=== PATIENT | female | born 1990 | race Caucasian/White ===

== ENCOUNTER → 2019-03-02 | Day surgery (SDC) | payer OTHER ==
--- NOTE | 2019-03-01 13:40 | Pre Op History & Physical ---
CHIEF COMPLAINT: Right thyroid nodule. HISTORY OF PRESENT ILLNESS: This 28-year-old female initially was seen in the ER around October of this year because of globus sensation. The patient denies any dysphagia, odynophagia, or shortness of breath. She has no choking. She does complain of hoarseness. The patient is a nonsmoker and a social drinker. A CT scan of the neck in the ER showed the patient has a lesion in the right isthmus and thyroid area. The patient has no family history of thyroid problems. She has no radiation to the head and neck area. Ultrasound of the thyroid that was done showed the patient has 1.9 cm nodule in the right lobe of the thyroid and isthmus. The criterion suitable for biopsy. After discussion of the treatment options with the patient, the patient has declined ultrasound-guided needle biopsy and elected for procedure. REVIEW OF SYSTEMS: System review showed no recent cardiovascular, respiratory, or GI problem. PAST MEDICAL HISTORY: The patient has no significant medical problem. PAST SURGICAL HISTORY: The patient has previous tonsillectomy and surgery to her ankle. SOCIAL HISTORY: She is a nonsmoker and a social drinker. ALLERGIES: SHE HAS NO KNOWN ALLERGY TO MEDICATION. MEDICATIONS: She is on: 1. Buspirone. 2. Bupropion. 3. Saphris. FAMILY HISTORY: Noncontributory. PHYSICAL EXAMINATION: VITAL SIGNS: On examination, the patient's vital signs were within normal limits. HEENT: Ear exam showed normal tympanic membrane bilaterally. Nasal exam showed hypertrophy of the inferior turbinates. Oropharynx and oral cavity showed no tonsils with Mallampati level 2. Nasal endoscopy showed the patient has mobile vocal folds bilaterally with no lesion in the hypopharynx. NECK: Showed no lymph node or thyroid palpable. CHEST: Showed good air entry bilaterally. CARDIOVASCULAR: Showed S1 and S2. No murmur noted. ASSESSMENT/PLAN: Ms. Vargas has right thyroid isthmus nodule. The suggested treatment is right thyroidectomy, possible total thyroidectomy, and other necessary procedure. The complication of procedure includes, but not limited to bleeding, infection, hypothyroidism, hyperthyroidism, hypocalcemia, hypercalcemia, voice change, recurrent laryngeal nerve injury, trouble swallowing, wound breakdown, poor cosmetic result, perforation of the esophagus, pneumomediastinum, persistent recurrence of the problem. Alternatives will be continue observation, needle aspiration of the lesion, thyroid suppression therapy. The patient and her mother have elected to undergo surgical procedure. MD SORAIDA Phillips/GRICEL /[id number]
[~2019-03-02] MED LIST: ACETAMINOPHEN 1000 MG/100 ML IV ONE; ALLERGY OTC PO; BUPROPION XL150 MG PO; BUSPIRONE HCL15 MG PO; DEXAMETHASONE SOD PHOS INJ 4 MG/ML VIAL ONE; FENTANYL CITRATE/PF 100MCG/2 ML INJ ONE; FLONASE SPRAY; GLYCOPYRROLATE INJ 1MG/ 5 ML SYR ONE; LIDOCAINE 1% W/EPINEPHRINE 20 ML VIAL ONE; LIDOCAINE HCL 1% LOCAL INJ 20 ML VIAL ONE; LIDOCAINE HCL 2% LOCAL INJ 5 ML SDV VIAL INJ ONE; MIDAZOLAM HCL 2 MG/2 ML VIAL ONE; NEOSTIGMINE 5 MG/5ML SYR ONE; ONDANSETRON HCL INJ 2MG/ML 2ML 2 MG/ML VIAL ONE; PROPOFOL IV EMULSION 10 MG/ML 20 ML VIAL ONE; ROCURONIUM BROMIDE 10 MG/ML 5ML VIAL ONE; SAPHRIS10 MG PO; SEVOFLURANE INHAL SOLN 250 ML PEN BTL ONE
--- OUTSIDE RECORDS SUMMARY | 2019-03-02 07:55 | XMS REPORT ---
Author Author Admin, Pyrites Organization Unknown Address Unknown Phone Unavailable PROBLEMS Condition Status Date Provider Notes Skin lesion active Swapnil Fan Hypercholesterolemia active Swapnil Fan Thyroid disorder active Swapnil Fan Allergic rhinitis active Obie Ann Iliotibial band syndrome active Obie Ann GENERALIZED ANXIETY DISORDER active Jessica Jacques BMI 45.0-49.9 active Obie Ann Medication, termite helper use active Jessica Jacques DEPRESSIVE DISORDER, MAJOR, RECURRENT EPISODE, MODERATE active Jessica Jacques Meralgia paresthetica, bilateral lower limbs active Obie Ann Lower back pain active Obie Ann Adjustment disorder with mixed anxiety and depressed mood active Zulay Pedersen DEPRESSIVE DISORDER NOS active Zulay Pedersen DIAGNOSIS DEFERRED, AXIS II active Ignacia Ogunmokun R/OBIPOLAR II DISORDER active Ignacia Ogunmokun R/ODEPRESSIVE DISORDER NOS active Ignacia Ogunmokun PELVIC PAIN completed - Obie Ann ADHD active Gerald Bainbridge ACNE VULGARIS completed - Obie Ann FAMILY PLANNING completed - Obie Ann UTI completed - Obie Ann DEPRESSION, MAJOR, MILD active Gerald Bainbridge OBESITY active Gerald Pierce ACCIDENTAL POISN AGTS PRIMARILY AFFECT CV SYSTEM active Gerald Pierce ENCOUNTERS Date Type Provider Location Encounter Diagnosis - Ambulatory Encounter [facility] - Ambulatory Encounter Swapnil Fan [facility] UNK - [facility] - [facility] Swapnil Patel [facility] Thyroid disorderHypercholesterolemiaSkin lesion - Ambulatory Encounter Jessica Jacques [facility] UNK - Ambulatory Encounter Jessica Leggett [facility] UNK - Ambulatory Encounter [facility] - [facility] UNK - Ambulatory Encounter Jessica Jacques [facility] UNK - Ambulatory Encounter Jessica Diop [facility] UNK - [facility] - [facility] - Ambulatory Encounter Breanna Mann [facility] UNK - [facility] - [facility]ulatory Encounter Obie Ann Obie Ann [facility] UNK - Ambulatory Encounter Swapnil Saleem Obie Ann Obie Ann Still [facility] UNK - Ambulatory Encounter Breanna Perstanleyu De Lou[place] [facility] UNK - Ambulatory Encounter Jessica Jacques [facility] UNK - Ambulatory Encounter Jessica Guillen [facility] UNK - Ambulatory Encounter Catia Hansen [facility] UNK - Ambulatory Encounter Breanna Perarnau [place] [facility] UNK - Ambulatory Encounter Breanna Permichaelnau [place] [facility] UNK - Ambulatory Encounter Jessica Jacques [facility] UNK - Ambulatory Encounter Jessica Guillen [facility] UNK - Ambulatory Encounter Breanna Permichaelnau [place] [facility] UNK - Ambulatory Encounter Breanna Permichaelnau [place] [facility] UNK - Ambulatory Encounter Jessica Jacques [facility] UNK - Ambulatory Encounter Obie Ann Obie Ann Miller [facility] UNK - Ambulatory Encounter Jessica Jacques [facility] UNK - Ambulatory Encounter Jessica Jacques [facility] UNK - Ambulatory Encounter Jessica Clarke [facility] UNK - Ambulatory Encounter Jessica Jacques [facility] UNK - Ambulatory Encounter Jessica Jacques [facility] UNK - Ambulatory Encounter Jessica Jacques [facility] Ambulatory Encounter Fax Status [facility] UNK - Ambulatory Encounter Fax Status [facility] UNK - Ambulatory Encounter Fax Status [facility] UNK - Ambulatory Encounter Obie Ann Obie Ann [facility] UNK - Ambulatory Encounter Obie Ann Obie Ann [facility] UNK - Ambulatory Encounter Obie Ann Obie Ann [facility] UNK - Ambulatory Encounter Catia Hlala Obie Ann Obie Ann Rio Hernandez [facility] Iliotibial band syndromeAllergic rhinitis - Ambulatory Encounter [facility] - Ambulatory Encounter [facility] - Ambulatory Encounter Breanna Mead [facility] UNK - Ambulatory Encounter Jessica Jacques [facility] UNK [facility] Ambulatory Encounter Jessica Jacques [facility] UNK - Ambulatory Encounter Jessica Rodrigues [facility] UNK - Ambulatory Encounter Jessica Jacques [facility] UNK - [facility] Encounter Obie Ann Obie Ann [facility] UNK - Ambulatory Encounter Obie Ann Obie Ann [facility] UNK - Ambulatory Encounter Jessica Guillen [facility] UNK - Ambulatory Encounter Swapnil Fan Obie Ann Obie Ann Moira Benjamin [facility] BMI 45.0-49.9 - Ambulatory Encounter Jessica Jacquse [facility] UNK - Ambulatory Encounter Jessica Simmons [facility] DEPRESSIVE DISORDER, MAJOR, RECURRENT EPISODE, MODERATEMedication, fci useGENERALIZED ANXIETY DISORDER - Ambulatory Encounter Obie Ann Obie Ann [facility] UNK - Ambulatory Encounter Obie Ann Obie Ann [facility] UNK - Ambulatory Encounter Obie Ann Obie Ann [facility] UNK - Ambulatory Encounter Elodia Saleem Obie Ann Obie Ann [facility] UTIFAMILY PLANNINGACNE VULGARISPELVIC PAINLower back painMeralgia paresthetica, bilateral lower limbs - Ambulatory Encounter Leatha Mahogany [facility] Contact Center UNK - Ambulatory Encounter Dariela Wadsworth [facility] UNK - Ambulatory Encounter Vazquez Vallecillo [facility] UNK - Ambulatory Encounter Vazquez Gallardo [facility] UNK - Ambulatory Encounter Vazquez Gallardo [facility] UNK - Ambulatory Encounter Zulay Pedersen [facility] UNK - Ambulatory Encounter Zulay Pedersen [facility] UNK - Ambulatory Encounter Zulay Biswas Francinetheodore [facility] Adjustment disorder with mixed anxiety and depressed mood - Ambulatory Encounter Zluay Pedersen [facility] UNK - Ambulatory Encounter Zulay Biswas Francinetheodore [facility] DEPRESSIVE DISORDER NOS - Ambulatory Encounter Zulay Pedersen [facility] UNK - Ambulatory Encounter Ignacia Ogunmokun Ignacia Ogunmokun Scarlett Gallardo [facility] R/ODEPRESSIVE DISORDER NOSR/OBIPOLAR II DISORDERDIAGNOSIS DEFERRED, AXIS II - Ambulatory Encounter Moriah Sandy [facility] Contact Center UNK - Ambulatory Encounter Edgardo Casey Benjamin [facility] UNK - Ambulatory Encounter Edgardo Casey Benjamin [facility] UNK - Ambulatory Encounter Edgardo Casey Benjamin [facility] UNK - Ambulatory Encounter Letha Vang [facility] UNK - Ambulatory Encounter Gerald [facility] UNK - Ambulatory Encounter Letha Vang [facility] UNK - Ambulatory En[facility] - Ambulatory Encounter Shani Harman [facility] UNK - Ambulatory Encounter Gerald Pazssica Vang [facility] PELVIC PAIN - Ambulatory En[facility] Gerald Duarte [facility] UNK - Ambulatory En[facility] - Ambulatory Encounter Sikhism Preload [facility] UNK - Ambulatory Encounter Sikhism Preload [facility] UNK - Ambulatory Encounter Sikhism Preload [facility] UNK - Ambulatory Encounter [facility]ikhism Preload [facility] UNK - Ambulatory Encounter Sikhism Preload [facility] UNK - Ambulatory Encounter Sikhism Preload [facility] UNK - Ambulatory Encounter Sikhism Preload [facility] UNK - Ambulatory Encounter Sikhism Preload [facility] UNK - Ambulatory Encounter Sikhism Preload [facility] UNK - Ambulatory Encounter [facility]ikh[facility] - Ambulatory Encounter [facility]ikhism [facility] - Ambulatory Encounter Sikhism Preload [facility] UNK - Ambulatory Encounter Sikhism Preload [facility] UNK - Ambulatory Encounter Sikhism Preload [facility] UNK - Ambulatory Encounter Sikhism Preload [facility] UNK - Ambulatory Encounter Sikhism Preload [facility] UNK - Ambulatory Encounter Sikhism Preload [facility] UNK - Ambulatory Encounter Sikhism Preload [facility] UNK - Ambulatory Encounter Sikhism Preload [facility] UNK - Ambulatory Encounter Sikhism Preload [facility] UNK - Ambulatory Encounter Sikhism Preload [facility] UNK - Ambulatory Encounter Sikhism Preload [facility] UNK - Ambulatory Encounter Sikhism Preload [facility] UNK - Ambulatory Encounter Sikhism Preload [facility] UNK - Ambulatory Encounter Sikhism Preload [facility] UNK - Ambulatory Encounter Sikhism Preload [facility] UNK - Ambulatory Encounter Sikhism Preload [facility] UNK - Ambulatory Encounter Sikhism Preload [facility] UNK - Ambulatory Encounter Sikhism Preload [facility] UNK - Ambulatory Encounter Kassie Navas [facility] UNK - Ambulatory Encounter Kassie Navas [facility] UNK - Ambulatory Encounter Gerald Bakermeli [facility] ACCIDENTAL POISN AGTS PRIMARILY AFFECT CV SYSTEMOBESITYDEPRESSION, MAJOR, MILDUTIFAMILY PLANNINGACNE VULGARIS - Ambulatory Encounter Sikhism Preload [facility] UNK - Ambulatory Encounter Sikhism Preload [facility] UN[facility] - Ambulatory Encounter Sikhism Preload [facility] UNK - Ambulatory Encounter Sikhism Preload [facility] UNK - Ambulatory Encounter Sikhism Preload [facility] UNK - Ambulatory Encounter Sikhism Preload [facility] UN[facility] - Ambulatory Encounter Sikhism Preload [facility] UN[facility] - Ambulatory Encounter Sikhism Preload [facility] UN[facility] - Ambulatory Encounter Sikhism [facility] - Ambulatory Encounter Sikhism Preload [facility] UNK - Ambulatory Encounter Sikhism Preload [facility] UN[facility] - Ambulatory Encounter Sikhism Preload [facility] UN[facility] - Ambulatory Encounter Sikhism Preload [facility] UNK - Ambulatory Encounter Sikhism Preload [facility] UNK - Ambulatory Encounter Sikhism Preload [facility] UNK - Ambulatory Encounter Gerald Mims [facility] UNK VITAL SIGNS No Information Available Allergies No Known Allergy Information REASON FOR REFERRAL Start Date - End Date Service - Other Referral - External RESULTS Date Observation Value Provider Reference Range Interpretation Location thyroid stimulating hormone, serum 1.950 u[iU]/mL [facility] 0.450-4.500 " LDL cholesterol, serum 187 mg/dL [facility] 0-99 High " very low density lipoproteins 16 mg/dL [facility] 5-40 " HDL cholesterol, serum 44 mg/dL [facility] >39 " triglyceride, serum, fasting 82 mg/dL [facility] 0-149 " cholesterol, serum 247 mg/dL [facility] 100-199 High " alanine aminotransferase (SGPT), serum 31 1/L [facility] 0-32 " aspartate aminotransferase (SGOT), serum 22 1/L [facility] 0-40 " alkaline phosphatase, serum 63 1/L [facility] 39-117 " bilirubin, serum, total 0.2 mg/dL [facility] 0.0-1.2 " albumin/globulin ratio, serum 1.8 [facility] 1.2-2.2 " globulin, serum 2.5 [facility] 1.5-4.5 " albumin, serum 4.6 g/dL [facility] 3.5-5.5 " protein, total, serum 7.1 g/dL [facility] 6.0-8.5 " calcium, serum 9.7 mg/dL [facility] 8.7-10.2 " carbon dioxide, venous blood 24 mmol/L [facility] 20-29 " chloride, serum 102 mmol/L [facility] 96-106 " potassium, serum 4.5 mmol/L [facility] 3.5-5.2 " sodium, serum 141 mmol/L [facility] 134-144 " urea nitrogen/creatinine ratio, serum 9 [facility] 9-23 " eGFR if 91 mL/min/((173/100).m2) [facility] >59 " Estimated Glomerular Filtration Rate (calc) 79 mL/min/((173/100).m2) [facility] >59 " creatinine, serum 0.97 mg/dL [facility] 0.57-1.00 " urea nitrogen, blood 9 mg/dL [facility] 6-20 " blood glucose, random 88 mg/dL [facility] 65-99 " immature granulocytes, percentage of total cells, blood 0 % [facility] Not Estab. " basophil count, absolute 0.0 x10E3/uL [facility] 0.0-0.2 " Eosinophil Absolute Count 0.5 X10E3/UL [facility] 0.0-0.4 High " monocyte count, blood, automated 0.6 X10E3/UL [facility] 0.1-0.9 " lymphocyte count, blood, automated 2.6 X10E3/UL [facility] 0.7-3.1 " Absolute Neutrophils 3.8 X10E3/UL [facility] 1.4-7.0 " basophils as percent of blood leukocytes 0 % [facility] Not Estab. " eosinophils as percent of blood leukocytes 6 % [facility] Not Estab. " monocytes as percent of blood leukocytes 8 % [facility] Not Estab. " lymphocytes as percent of blood leukocytes 34 % [facility] Not Estab. " neutrophils as percent of blood leukocytes 52 % [facility] Not Estab. " platelet count 292 X10E3/UL [facility] 150-450 " red blood cell distribution width 12.8 % [facility] 12.3-15.4 " mean corpuscular hemoglobin concentration, RBC 32.8 G/DL [facility] 31.5-35.7 " mean corpuscular hemoglobin, RBC 29.6 pg [facility] 26.6-33.0 " mean corpuscular volume, RBC 90 fL [facility] 79-97 " hematocrit, blood 45.7 % [facility] 34.0-46.6 " hemoglobin, blood 15.0 g/dL [facility] 11.1-15.9 " erythrocyte (RBC) count 5.07 X10E6/UL [facility] 3.77-5.28 " leukocyte count, blood 7.5 X10E3/UL [facility] 3.4-10.8 triiodothyronine (T3), serum 128 ng/dL [facility] 71-180 " thyroxine, serum, total 7.4 ug/dL [facility] 4.5-12.0 " thyroid stimulating hormone, serum 1.320 u[iU]/mL [facility] 0.450-4.500 " LDL cholesterol, serum 150 mg/dL [facility] 0-99 High " very low density lipoproteins 33 mg/dL [facility] 5-40 " HDL cholesterol, serum 38 mg/dL [facility] >39 Low " triglyceride, serum, fasting 166 mg/dL [facility] 0-149 High " cholesterol, serum 221 mg/dL [facility] 100-199 High " alanine aminotransferase (SGPT), serum 55 1/L [facility] 0-32 High " aspartate aminotransferase (SGOT), serum 32 1/L [facility] 0-40 " alkaline phosphatase, serum 62 1/L [facility] 39-117 " bilirubin, serum, total 0.2 mg/dL [facility] 0.0-1.2 " albumin/globulin ratio, serum 2.1 [facility] 1.2-2.2 " globulin, serum 2.1 [facility] 1.5-4.5 " albumin, serum 4.4 g/dL [facility] 3.5-5.5 " protein, total, serum 6.5 g/dL [facility] 6.0-8.5 " calcium, serum 9.6 mg/dL [facility] 8.7-10.2 " carbon dioxide, venous blood 25 mmol/L [facility] 20-29 " chloride, serum 103 mmol/L [facility] 96-106 " potassium, serum 4.3 mmol/L [facility] 3.5-5.2 " sodium, serum 142 mmol/L [facility] 134-144 " urea nitrogen/creatinine ratio, serum 12 [facility] 9-23 " eGFR if 109 mL/min/((173/100).m2) [facility] >59 " Estimated Glomerular Filtration Rate (calc) 95 mL/min/((173/100).m2) [facility] >59 " creatinine, serum 0.84 mg/dL [facility] 0.57-1.00 " urea nitrogen, blood 10 mg/dL [facility] 6-20 " blood glucose, random 89 mg/dL [facility] 65-99 " immature granulocytes, percentage of total cells, blood 0 % [facility] Not Estab. " basophil count, absolute 0.0 x10E3/uL [facility] 0.0-0.2 " Eosinophil Absolute Count 0.5 X10E3/UL [facility] 0.0-0.4 High " monocyte count, blood, automated 0.6 X10E3/UL [facility] 0.1-0.9 " lymphocyte count, blood, automated 2.5 X10E3/UL [facility] 0.7-3.1 " Absolute Neutrophils 3.7 X10E3/UL [facility] 1.4-7.0 " basophils as percent of blood leukocytes 0 % [facility] Not Estab. " eosinophils as percent of blood leukocytes 7 % [facility] Not Estab. " monocytes as percent of blood leukocytes 8 % [facility] Not Estab. " lymphocytes as percent of blood leukocytes 34 % [facility] Not Estab. " neutrophils as percent of blood leukocytes 51 % [facility] Not Estab. " platelet count 283 X10E3/UL [facility] 150-379 " red blood cell distribution width 13.5 % [facility] 12.3-15.4 " mean corpuscular hemoglobin concentration, RBC 34.0 G/DL [facility] 31.5-35.7 " mean corpuscular hemoglobin, RBC 29.8 pg [facility] 26.6-33.0 " mean corpuscular volume, RBC 88 fL [facility] 79-97 " hematocrit, blood 43.0 % [facility] 34.0-46.6 " hemoglobin, blood 14.6 g/dL [facility] 11.1-15.9 " erythrocyte (RBC) count 4.90 X10E6/UL [facility] 3.77-5.28 " leukocyte count, blood 7.3 X10E3/UL [facility] 3.4-10.8 beta HCG, urine, semiquantitative negative Carmela Benjamin glucose, urine, semiquantitative negative Rheakye Gray " bilirubin, urine negative Rhea Gray " ketones, urine, by test strip negative Rhea Gray " specific gravity, urine 1.025 Rhea Gray " blood in urine (hemoglobin) by dipstick negative Rhea Gray " pH, urine, semiquantitative 5.0 Rhea Gray " protein, urine, semiquantitative (dipstick) negative Rhea Gray " urobilinogen, urine, semiquantitative (dipstick) negative Rhea Gray " nitrite, urine, semiquantitative negative Rhea Gray " leukocyte esterase, urine, by dipstick 1+ Rhea Gray " appearance, urine clear Rhea Gray " urine color yellow Rhea Gray HISTORY OF IMMUNIZATIONS No Information Available HISTORY OF MEDICATION USE Medication Instructions Dates Provider Comments PHENTERMINE HCL 30 MG ORAL CAPSULE 1 by mouth every 2 hours after breakfast Swapnil Fan FLUTICASONE PROPIONATE 50 MCG/ACT SUSP SPRAY 2 SPRAYS INTO EACH NOSTRIL EVERY DAY Shikha Hansen [facility] WELLBUTRIN XL 150 MG ORAL TABLET EXTENDED RELEASE 24 HOUR Take 1 tablet By Mouth QAM Jessica Jacques FLONASE ALLERGY RELIEF 50 MCG/ACT NASAL SUSPENSION 2 sprays each nostril every day - Shikha Hansen [facility] BUSPIRONE HCL 15 MG ORAL TABLET Take 2 tablets By Mouth BID Jessica Jacques SAPHRIS 10 MG SUBLINGUAL TABLET SUBLINGUAL Dissolve 1 tablet By Mouth QHS Jessica Jacques GABAPENTIN 300 MG ORAL CAPSULE 1 by mouth three times a day as needed for pain - Swapnil Fan CYCLOBENZAPRINE HCL 10 MG ORAL TABLET take 1 tablet at nightime Obie Juarez NAPROXEN 500 MG ORAL TABLET 1 by mouth twice a day as needed for pain and inflammation Obie Juarez ELAVIL 25MG take 1 tab By Mouth Three Times a Day As Needed - Ignacia Ogunmokun Take for depression VALIUM 5 MG ORAL TABLET take 1 tab By Mouth Three Times a Day As Needed - Ignacia Ogunmokun Take for anxiety TRAZODONE HCL 100 MG ORAL TABLET take 2 tabs po at bedtime, may repeat X 1 tab as needed - Ignacia Ogunmokun Take for insomnia CYMBALTA 60 MG ORAL CAPSULE DELAYED RELEASE PARTICLES One daily - Obie Juarez ADDERALL XR 30 MG ORAL CAPSULE EXTENDED RELEASE 24 HOUR One daily - Obie Juarez BENZAMYCIN 5-3 % EXTERNAL GEL apply to face nightly at bedtime - Obie Juarez HYDROXYZINE HCL 50 MG ORAL TABLET Take 1 tablet By Mouth BID As Needed for anxiety - Swapnil Fan TRAZODONE HCL 150 MG ORAL TABLET 1 by mouth nightly at bedtime - Obie Juarez ABILIFY 2 MG ORAL TABLET One daily in morning - Obie Juarez SOCIAL HISTORY Date Observation Value Provider Exercise Program Referral Agnes Fan " Weight Management Counseling Provided Agnes Fan " Nutrition intervention Agnes Fan " drug use, illicit Never Rosalie Eng " alcohol use Currently Rosalie Eng " social history E&M . alone before in 2011, Not homeless. Born in [facility]. City: [place]. State: [place]. Pt have own apartment but currently live with mom Not employed. Highest education level: some college. attended cosmetology Gender of partner(s): male. Age of first sexual intercourse: 19. Holiness.no hobbies but would like to explore thought of developing Rosalie Eng " social history reviewed E&M reviewed today Rosalie Eng " assessment of health literacy ([facility] 2014 Standards, 3C10) Adequate Rosalie Eng " passive cigarette smoke exposure Yes Rosalie Eng " smoking status never smoker Rosalie Eng drug use, illicit Never Jessica Jacques " alcohol use Currently Jessica Jacques " smoking status never smoker Jessica Jacques " social history E&M . alone before in 2011, Not homeless. Born in [facility]. City: [place]. State: [place]. Pt have own apartment but currently live with mom Not employed. Highest education level: some college. attended cosmetology Gender of partner(s): male. Age of first sexual intercourse: 19. Holiness.no hobbies but would like to explore thought of developing Jessica Jacques " social history reviewed E&M reviewed today Jessica Jacques drug use, illicit Never Jessica Jacques " alcohol use Currently Jessica Jacques " smoking status never smoker Jessica Jacques " social history E&M . alone before in 2011, Not homeless. Born in [place]. City: [place]. State: [place]. Pt have own apartment but currently live with mom Not employed. Highest education level: some college. attended cosmetology Gender of partner(s): male. Age of first sexual intercourse: 19. Holiness.no hobbies but would like to explore thought of developing Jessica Jacques " social history reviewed E&M reviewed today Jessica Jacques drug use, illicit Never Laurita Saleem " alcohol use Currently Laurita Saleem " social history E&M . alone before in 2011, Not homeless. Born in [place] City: [place]. State: [place]. Pt have own apartment but currently live with mom Not employed. Highest education level: some college. attended cosmetology Gender of partner(s): male. Age of first sexual intercourse: 19. Holiness.no hobbies but would like to explore thought of developing Laurita Stiven " social history reviewed E&M reviewed today Laurita Saleem " sexual orientation Heterosexual Laurita Stiven " assessment of health literacy ([facility] 2014 Standards, 3C10) Adequate Laurita Saleem " passive cigarette smoke exposure Yes Laurita Saleem " smoking status never smoker Laurita Saleem " Exercise Program Referral T Laurita Saleem " Weight Management Counseling Provided T Laurita Saleem " Nutrition intervention T Laurita Saleem drug use, illicit Never Jesisca Jacques " alcohol use Currently Jessica Jacques " smoking status never smoker Jessica Jacques " social history E&M . alone before in 2011, Not homeless. Born in [facility]. City: [place]. State: [place]. Pt have own apartment but currently live with mom Not employed. Highest education level: some college. attended cosmetology Gender of partner(s): male. Age of first sexual intercourse: 19. Holiness.no hobbies but would like to explore thought of developing Jessica Jacques " social history reviewed E&M reviewed today Jessica Jacques drug use, illicit Never Jessica Jacques " alcohol use Currently Jessica Jacques " smoking status never smoker Jessica Jacques " social history E&M . alone before in 2011, Not homeless. Born in [place]. City: [place]. State: [place]. Pt have own apartment but currently live with mom Not employed. Highest education level: some college. attended cosmetology Gender of partner(s): male. Age of first sexual intercourse: 19. Holiness.no hobbies but would like to explore thought of developing Jessica Jacques " social history reviewed E&M reviewed today Jessica Jacques alcohol use Currently Jessicajim Jacques " smoking status never smoker Jessica Jacques " social history E&M . alone before in 2011, Not homeless. Born in [facility]. City: [place]. State: [place]. Pt have own apartment but currently live with mom Not employed. Highest education level: some college. attended cosmetology Gender of partner(s): male. Age of first sexual intercourse: 19. Holiness.no hobbies but would like to explore thought of developing Jessica Jacques " social history reviewed E&M reviewed today Jessica Jacques Exercise Program Referral T Obie Juarez " Weight Management Counseling Provided T Obie Juarez " Nutrition intervention T Obie Juarez " drug use, illicit Never Rosalie Eng " alcohol use Currently Rosalie Eng " social history E&M . alone before in 2011, Not homeless. Born in [facility]. City: [place]. State: [place]. Pt have own apartment but currently live with mom Not employed. Highest education level: some college. attended cosmetology Gender of partner(s): male. Age of first sexual intercourse: 19. Holiness.no hobbies but would like to explore thought of developing Rosalie Eng " social history reviewed E&M reviewed today Rosalie Eng " assessment of health literacy ([facility] 2014 Standards, 3C10) Adequate Rosalie Eng " passive cigarette smoke exposure No Rosalie Eng " smoking status never smoker Rosalie Eng family support at 21, at 22. No children, no siblings. No contact with father Breannatayla Pugadeni De Jessica " drug use, illicit Never Breanna Perarnau De Loukanis " alcohol use Currently Breanna Perarnau De Loukanis " smoking status never smoker Breanna Perarnau De Loukanis drug use, illicit Never Jessica Jacques " alcohol use Currently Jessica Jacques " smoking status never smoker Jessica Jacques " social history E&M . alone before in 2011, Not homeless. Born in [facility]. City: [place]. State: [place]. Pt have own apartment but currently live with mom Not employed. Highest education level: some college. attended cosmetology Gender of partner(s): male. Age of first sexual intercourse: 19. Holiness.no hobbies but would like to explore thought of developing Jessica Jacques " social history reviewed E&M reviewed today Jessica Jacques drug use, illicit Never Moira Benjamin " alcohol use Currently Moira Benjamin " social history E&M . alone before in 2011, Not homeless. Born in [facility]. City: [place]. State: [place]. Pt have own apartment but currently live with mom Not employed. Highest education level: some college. attended cosmetology Gender of partner(s): male. Age of first sexual intercourse: 19. Holiness.no hobbies but would like to explore thought of developing Moira Benjamin " social history reviewed E&M reviewed today Moira Benjamin " sexual orientation Heterosexual Moira Benjamin " passive cigarette smoke exposure No Moira Benjamin " smoking status never smoker Moira Benjamin " Exercise Program Referral Agnes Benjamin " Weight Management Counseling Provided Agnes Benjamin " Nutrition intervention Agnes Benjamin home/family situation, assessment Keeps own apartment, but close by to mom's Jessicajim Jacques " family support at 21, at 22. No children, no siblings. Jessica Jacques " drug use, illicit Never Jessica Jacques " alcohol use Currently Jessica Jacques " smoking status never smoker Jessica Jacques " social history E&M . Spouse/Partner/Significant Other: no. at 21, at 22. No children, no siblings. Not homeless. Born in [facility]. City: [place]. State: [place]. Keeps own apartment, but close by to mom's Not employed. Highest education level: some college. attended cosmetology; works at [employer]. Hx ADHD and dyslexia Sexual orientation: Heterosexual. Gender identity: Female. Gender of partner(s): male. Age of first sexual intercourse: 19. Holiness.no hobbies but would like to explore thought of developing. has cats- 2 at mom's, 2 at her house Jessica Jacques " social history reviewed E&M reviewed today Jessica Jacques " Exercise Program Referral T Laurita Saleem " drug use, illicit Never Laurita Saleem " alcohol use Currently Laurita Saleem " Weight Management Counseling Provided T Laurita Saleem " Nutrition intervention T Laurita Saleem " sexual orientation Heterosexual Laurita Saleem " is there any chance that you could be ? No Laurita Saleem " passive cigarette smoke exposure Yes Laurita Saleem " smoking status never smoker Lauriat Saleem social history reviewed E&M reviewed today Zulaybrittny Pedersen " social history E&M . alone before in 2011, Not homeless. Born in [facility]. City: [place]. State: [place]. Pt have own apartment but currently live with mom Not employed. Highest education level: some college. attended cosmetology Gender of partner(s): male. Age of first sexual intercourse: 19. Holiness.no hobbies but would like to explore thought of developing Zulay Almore " drug use, illicit Never Zulay Almore " alcohol use Never Zulay Almore " smoking status never smoker Zulay Almore " family support alone before in 2011, Zulay Almore " home/family situation, assessment Pt have own apartment but currently live with mom Zulay Pedersen drug use, illicit Never Ignacia Ogunmokun " alcohol use Never Ignacia Ogunmokun " smoking status never smoker Ignacia Ogunmokun " social history E&M . alone Not homeless. Born in [place] City: [place]. State: [place]. apartment Highest education level: some college. Gender of partner(s): male. Age of first sexual intercourse: 19. Ignacia Ogunmokun " social history reviewed E&M reviewed today Ignacia Ogunmokun " Exercise Program Referral T Ignacia Ogunmokun " Weight Management Counseling Provided T Ignacia Ogunmokun " Nutrition intervention T Ignacia Ogunmokun passive cigarette smoke exposure No Carmela Sourav " smoking status never smoker Carmela Sourav time of call 11/04/2013 3:22 PM Letha Vang " social history reviewed E&M reviewed today Letha Vang " social history E&M . alone Not homeless. Born in [place] City[place]. State: [place]. apartment Highest education level: some college. Gender of partner(s): male. Age of first sexual intercourse: 19. Letha Vang " patient considered to be homeless No Letha Vang " drug use, illicit Never Letha Vang " alcohol use, number maximum drinks per occasion 1 glass of wine Letha Nowakrez " alcohol use, frequency few times per month Letha Nowakrez " alcohol use Currently Letha Vang " passive cigarette smoke exposure No Letha Vang " smoking status never smoker Letha Vang home/family situation, assessment apartment [facility] " family support alone [facility] " passive cigarette smoke exposure No Rhea Gray " smoking status never smoker Rhea Gray smoking status Never smoker [employer]ic smoking status Never smoker [employer]Logic smoking status Never smoker [employer] passive cigarette smoke exposure No Rhea Gray " smoking status never smoker Rhea Gray time of call 12/02/2012 2:02 PM Jacqueline Mims FUNCTIONAL STATUS No Information Available MENTAL STATUS Date Observation Value Provider mental status examination: orientation E&M oriented to time, place, and person Swapnil Fan " assessment of mood and affect E&M no depression, anxiety, or agitation Swapnil Fan " Generalized Anxiety Disorder Questionnaire - Question 2 0 Rosalie Eng " Generalized Anxiety Disorder Questionnaire - Question 1 0 Rosalie Eng mental status assessment, judgment fair Jessica Jacques " insight (mental status exam) fair Jessica Jacques " Mental Status Exam: intelligence adequate fund of information, intact memory processes, oriented to person, oriented to place, oriented to time, oriented to situation, oriented to reality Jessica Jacques " hallucinations none Jessica Jacques " thought content (mental status exam) (E&M) lucid Jessica Jacques " mental status assessment, process able to abstract, goal-directed, logical Jessica Jacques " mental status assessment, sensorium alert, attentive Jessica Jacques " affect (mental status exam) congruent, euthymic, normal intensity, normal range Jessica Jacques " mood (mental status exam) pleasant Jessica Jacques " mental status assessment, speech activity normal flow, normal pace, normal pressure, normal rate, normal tone, normal volume, spontaneous Jessica Jacques " mental status assessment, motor activity normal gait, normal posture Jessica Jacques " behavior (mental status exam) appropriate, candid, cooperative, good eye contact, polite, responsive Jessica Jacques " mental appearance (mental status exam) adequate hygiene, appropriate dress, looks like stated age, neat Jessica Jacques mental status assessment, judgment fair Jessica Jacques " insight (mental status exam) fair Jessica Jacques " Mental Status Exam: intelligence adequate fund of information, oriented to person, oriented to place, oriented to time, oriented to situation, oriented to reality Jessica Jacques " hallucinations none Jessica Jacques " thought content (mental status exam) (E&M) lucid Jessica Jacques " mental status assessment, process able to abstract, goal-directed, logical Jessica Jacques " mental status assessment, sensorium alert, attentive Jessica Jacques " affect (mental status exam) congruent, normal intensity, normal range Jessica Jacques " mood (mental status exam) pleasant Jessica Jacques " mental status assessment, speech activity normal flow, normal pace, normal pressure, normal rate, normal tone, normal volume, spontaneous Jessica Jacques " mental status assessment, motor activity normal gait, normal posture Jessica Jacques " behavior (mental status exam) appropriate, candid, cooperative, good eye contact, polite, responsive Jessica Jacques " mental appearance (mental status exam) adequate hygiene, appropriate dress, looks like stated katarina, jose Jessica Jacques assessment of judgment and insight E&M intact Obie Ann " mental status examination: orientation E&M oriented to time, place, and person Obie Ann " assessment of mood and affect E&M no depression, anxiety, or agitation Obie Ann " Generalized Anxiety Disorder Questionnaire - Question 2 0 Laurita Saleem " Generalized Anxiety Disorder Questionnaire - Question 1 0 Laurita Saleem mental status assessment, judgment fair Jessica Jacques " insight (mental status exam) fair Jessica Jacques " Mental Status Exam: intelligence adequate fund of information, oriented to person, oriented to place, oriented to time, oriented to situation, oriented to reality Jessica Jacques " hallucinations none Jessica Jacques " thought content (mental status exam) (E&M) lucid Jessicajim Jacques " mental status assessment, process able to abstract, goal-directed, logical Jessicajim Jacques " mental status assessment, sensorium alert, attentive Jessicajim Jacques " affect (mental status exam) congruent, normal intensity, normal range Jessicajim Jacques " mood (mental status exam) pleasant Jessica Jacques " mental status assessment, speech activity normal flow, normal pace, normal pressure, normal rate, normal tone, normal volume, spontaneous Jessicajim Jacques " mental status assessment, motor activity normal gait, normal posture Jessicajim Jacques " behavior (mental status exam) appropriate, candid, cooperative, good eye contact, polite, responsive Jessica Jacques " mental appearance (mental status exam) adequate hygiene, appropriate dress, looks like stated katarina, jose Jessicajim Jacques mental status assessment, judgment fair Breanna Perarnau De Loukanis " insight (mental status exam) fair Breanna Perarnau De Loukanis " Mental Status Exam: intelligence adequate fund of information, oriented to person, oriented to place, oriented to time, oriented to situation, oriented to reality Breanna Perarnau De Loukanis " hallucinations none Breanna Perarnau De Loukanis " thought content (mental status exam) (E&M) lucid Breanna Perarnau De Loukanis " mental status assessment, process able to abstract, goal-directed Breanna Perarnau De Loukanis " mental status assessment, sensorium alert, attentive, clear Breanna Perarnau De Loukanis " affect (mental status exam) constricted Breanna Perarnau De Loukanis " mood (mental status exam) pleasant Breanna Perarnau De Loukanis " mental status assessment, speech activity normal flow, normal pace, normal pressure, normal rate, normal tone, normal volume, spontaneous Breanna Perarnau De Loukanis " mental status assessment, motor activity normal gait, normal posture Breanna Perarnau De Loukanis " behavior (mental status exam) appropriate, candid, good eye contact, polite, responsive Breanna Perarnau De Loukanis " mental appearance (mental status exam) adequate hygiene, appropriate dress, looks like stated age, neat Breanna Perarnau De Loukanis mood (mental status exam) pleasant Breanna Mann " mental status assessment, judgment fair Breanna Mann " insight (mental status exam) fair Breanna Mann " Mental Status Exam: intelligence adequate fund of information, oriented to person, oriented to place, oriented to time, oriented to situation, oriented to reality Breanna Mann " hallucinations none Breanna Mann " thought content (mental status exam) (E&M) lucid Breanna Mann " mental status assessment, process able to abstract, goal-directed Breanna Mann " mental status assessment, sensorium alert, attentive, clear Breanna Mann " affect (mental status exam) constricted Breanna Mann " mental status assessment, speech activity normal flow, normal pace, normal pressure, normal rate, normal tone, normal volume, spontaneous Breanna Mann " mental status assessment, motor activity normal gait, normal posture Breanna Mann " behavior (mental status exam) appropriate, candid, cooperative, good eye contact, polite, responsive Breanna Mann " mental appearance (mental status exam) adequate hygiene, appropriate dress, looks like stated age, neat Breanna Mann mood (mental status exam) sad Jessica Jacques " mental status assessment, judgment fair Jessica Sawyer " insight (mental status exam) fair Jessica Jacques " Mental Status Exam: intelligence adequate fund of information, oriented to person, oriented to place, oriented to time, oriented to situation, oriented to reality Jessica Jacques " hallucinations none Jessica Jacques " thought content (mental status exam) (E&M) lucid Jessica Jacques " mental status assessment, process able to abstract, goal-directed Jessica Jacques " mental status assessment, sensorium alert, attentive, clear Jessica Jacques " affect (mental status exam) congruent, constricted Jessica Jacques " mental status assessment, speech activity normal flow, normal pace, normal pressure, normal rate, normal tone, normal volume, spontaneous Jessica Jacques " mental status assessment, motor activity normal gait, normal posture Jessica Jacques " behavior (mental status exam) appropriate, candid, cooperative, good eye contact, polite, responsive, tearful Jessica Jacques " mental appearance (mental status exam) adequate hygiene, appropriate dress, looks like stated age, jose Jessica Jacques mood (mental status exam) pleasant Breanna Perarnau De Loukanis " mental status assessment, judgment good Breanna Perarnau De Loukanis " insight (mental status exam) fair Breanna Perarnau De Loukanis " Mental Status Exam: intelligence adequate fund of information, oriented to person, oriented to place, oriented to time, oriented to situation, oriented to reality Breanna Permichaelnau De Loukanis " hallucinations none Breanna Perarnau De Loukanis " thought content (mental status exam) (E&M) lucid Breanna Perarnau De Locheconis " mental status assessment, process able to abstract, goal-directed Breanna Perarnau De Loukanis " mental status assessment, sensorium alert, attentive, clear Breanna Perarnau De Loukanis " affect (mental status exam) congruent, constricted Breanna Perarnau De Loukanis " mental status assessment, speech activity normal flow, normal pace, normal pressure, normal rate, spontaneous Breanna Perarnau De Locheconis " mental status assessment, motor activity normal gait, normal posture Breanna Permichaelnau De Locheconis " behavior (mental status exam) appropriate, candid, cooperative, good eye contact, polite, responsive Breanna Permichaelnau De Loukanis " mental appearance (mental status exam) adequate hygiene, appropriate dress, looks like stated age, jose Breannatayla Dangnau Padillanis mental status assessment, judgment good Jessica Jacques " insight (mental status exam) good Jessica Jacques " Mental Status Exam: intelligence adequate fund of information, oriented to person, oriented to place, oriented to time, oriented to situation, oriented to reality Jessica Jacques " hallucinations none Jessica Jacques " thought content (mental status exam) (E&M) lucid Jessica Jacques " mental status assessment, process able to abstract, goal-directed Jessicajim Jacques " mental status assessment, sensorium alert, attentive, clear Jessicajim Jacques " affect (mental status exam) congruent, constricted Jessica Jacques " mood (mental status exam) sad, worried Jessicajim Jacques " mental status assessment, speech activity normal flow, normal pace, normal pressure, normal rate, spontaneous Jessicajim Jacques " mental status assessment, motor activity normal gait, normal posture Jessica Jacques " behavior (mental status exam) appropriate, cooperative, good eye contact, polite, responsive Jessicajim Jacques " mental appearance (mental status exam) adequate hygiene, appropriate dress, looks like stated age, neat Jessica Jacques assessment of judgment and insight E&M intact Obieliliana Patelmi " mental status examination: orientation E&M oriented to time, place, and person Obieliliana Patelmi " assessment of mood and affect E&M no depression, anxiety, or agitation [facility] " Generalized Anxiety Disorder Questionnaire - Question 2 0 Rosalie Eng " Generalized Anxiety Disorder Questionnaire - Question 1 0 Rosalie Eng mood (mental status exam) sad, worried Breanna Perarnau De Loukanis " anxiety worry a lot, sleep disturbance, irritability, panic attacks Breanna Perarnau De Loukanis " mental status assessment, judgment good Breanna Perarnau De Loukanis " insight (mental status exam) good Breanna Perarnau De Loukanis " Mental Status Exam: intelligence adequate fund of information, oriented to person, oriented to place, oriented to time, oriented to situation, oriented to reality Breanna Perarnau De Loukanis " hallucinations none Breanna Perarnau De Loukanis " thought content (mental status exam) (E&M) lucid Breanna Perarnau De Loukanis " mental status assessment, process able to abstract, goal-directed Breanna Perarnau De Loukanis " mental status assessment, sensorium alert, attentive, clear Breanna Perarnau De Loukanis " affect (mental status exam) congruent, constricted Breanna Perarnau De Loukanis " mental status assessment, speech activity normal flow, normal pace, normal pressure, normal rate, spontaneous Breanna Perarnau De Loukanis " mental status assessment, motor activity normal gait, normal posture Breanna Mann " behavior (mental status exam) appropriate, cooperative, good eye contact, polite, responsive Breanna Mann " mental appearance (mental status exam) adequate hygiene, appropriate dress, looks like stated age, neat Breanna Mann mental status assessment, judgment good Jessica Jacques " insight (mental status exam) fair Jessica Jacques " Mental Status Exam: intelligence adequate fund of information, intact memory processes, oriented to person, oriented to place, oriented to time, oriented to situation, oriented to reality Jessica Jacques " hallucinations none Jessica Jacques " thought content (mental status exam) (E&M) lucid Jessica Jacques " mental status assessment, process able to abstract, goal-directed, logical Jessica Jacques " mental status assessment, sensorium alert, attentive, clear Jessica Jacques " affect (mental status exam) congruent, normal intensity, normal range, anxious Jessica Jacques " mood (mental status exam) depressed Jessica Jacques " mental status assessment, speech activity normal flow, normal pace, normal pressure, normal rate, normal tone, normal volume, spontaneous Jessica Jacques " mental status assessment, motor activity normal gait, normal posture Jessica Jacques " behavior (mental status exam) appropriate, candid, cooperative, good eye contact, polite, responsive Jessica Jacques " mental appearance (mental status exam) adequate hygiene, appropriate dress, looks like stated age, neat Jessica Jacques assessment of judgment and insight E&M intact Obieliliana Juarez " mental status examination: orientation E&M oriented to time, place, and person Obieliliana Juarez " assessment of mood and affect E&M no depression, anxiety, or agitation Obieliliana Juarez " Generalized Anxiety Disorder Questionnaire - Question 2 0 Moira Benjamin " Generalized Anxiety Disorder Questionnaire - Question 1 0 Moira Benjamin anxiety worry a lot, sleep disturbance, restlessness, irritability, panic attacks, obsessions/compulsions Jessica Jacques " mental status assessment, judgment good Jessica Jacques " insight (mental status exam) fair Jessica Jacques " Mental Status Exam: intelligence adequate fund of information, intact memory processes, oriented to person, oriented to place, oriented to time, oriented to situation, oriented to reality Jessica Jacques " hallucinations none [facility] " thought content (mental status exam) (E&M) lucid Jessica Jacques " mental status assessment, process able to abstract, goal-directed, logical Jessica Jacques " mental status assessment, sensorium alert, attentive, clear Jessica Jacques " affect (mental status exam) congruent, normal intensity, normal range, anxious Jessica Jacques " mood (mental status exam) depressed, sad, worried Jessica Jacques " mental status assessment, speech activity normal flow, normal pace, normal pressure, normal rate, normal tone, normal volume, spontaneous Jessica Jacques " mental status assessment, motor activity normal gait, normal posture Jessica Jacques " behavior (mental status exam) appropriate, candid, cooperative, good eye contact, polite, responsive Jessica Jacques " mental appearance (mental status exam) adequate hygiene, appropriate dress, looks like stated age, neat Jessica Jacques assessment of judgment and insight E&M intact Obie Juarez " mental status examination: orientation E&M oriented to time, place, and person Obieliliana Juarez " assessment of mood and affect E&M no depression, anxiety, or agitation Obie Juarez " If any problems checked, how difficult have these problems made it for you to do your work, take care of things at home, or get along with other people (GAD7, question 8) 3 Laurita Saleem " Generalized Anxiety Disorder Questionnaire - Question 7 3 Laurita Saleem " Generalized Anxiety Disorder Questionnaire - Question 6 3 Laurita Saleem " Generalized Anxiety Disorder Questionnaire - Question 5 3 Laurita Saleem " Generalized Anxiety Disorder Questionnaire - Question 4 3 Laurita Saleem " Generalized Anxiety Disorder Questionnaire - Question 3 3 Laurita Saleem " Generalized Anxiety Disorder Questionnaire - Question 2 3 Laurita Saleem " Generalized Anxiety Disorder Questionnaire - Question 1 3 Lauirta Saleem mental status assessment, judgment good Zulay Francineore " insight (mental status exam) good Zulay Almore " Mental Status Exam: intelligence adequate fund of information, intact memory processes, oriented to person, oriented to place, oriented to time, oriented to situation, oriented to reality Zulay Pedersen " hallucinations none Zulay Pedersen " thought content (mental status exam) (E&M) lucid Zulay Pedersen " mental status assessment, process able to abstract, goal-directed, logical Zulay Almore " mental status assessment, sensorium alert, attentive, clear Zulay Almore " affect (mental status exam) congruent, euthymic, normal intensity, normal range Zulay Almore " mood (mental status exam) pleasant Zulay Almore " mental status assessment, speech activity normal flow, normal pace, normal pressure, normal rate, normal tone, normal volume, spontaneous Zulay Almore " mental status assessment, motor activity normal gait, normal posture Zulay Almore " behavior (mental status exam) appropriate, candid, cooperative, good eye contact, polite, responsive Zulay Almore " mental appearance (mental status exam) adequate hygiene, appropriate dress, looks like stated age, jose Pedersen mental status assessment, judgment good Zulay Almore " insight (mental status exam) good Zulay Almore " Mental Status Exam: intelligence adequate fund of information, intact memory processes, oriented to person, oriented to place, oriented to time, oriented to situation, oriented to reality Zulay Almore " hallucinations none Zulay Almore " thought content (mental status exam) (E&M) lucid Zulay Almore " mental status assessment, process able to abstract, goal-directed, logical Zulay Almore " mental status assessment, sensorium alert, attentive, clear Zulay Almore " affect (mental status exam) congruent, euthymic, normal intensity, normal range Zulay Almore " mood (mental status exam) pleasant Zulay Almore " mental status assessment, speech activity normal flow, normal pace, normal pressure, normal rate, normal tone, normal volume, spontaneous Zulay Almore " mental status assessment, motor activity normal gait, normal posture Zulay Almore " behavior (mental status exam) appropriate, candid, cooperative, good eye contact, polite, responsive Zulay Almore " mental appearance (mental status exam) adequate hygiene, appropriate dress, looks like stated age, jose Pedersen mental status assessment, judgment good Zulay Almore " insight (mental status exam) good Zulay Almore " Mental Status Exam: intelligence adequate fund of information, intact memory processes, oriented to person, oriented to place, oriented to time, oriented to situation, oriented to reality Zulay Almore " hallucinations none Zulay Almore " thought content (mental status exam) (E&M) lucid Zulay Almore " mental status assessment, process able to abstract, goal-directed, logical Zulay Almore " mental status assessment, sensorium alert, attentive, clear Zulay Almore " affect (mental status exam) congruent, euthymic, normal intensity, normal range Zulay Almore " mood (mental status exam) pleasant Zulay Almore " mental status assessment, speech activity normal flow, normal pace, normal pressure, normal rate, normal tone, normal volume, spontaneous Zulay Almore " mental status assessment, motor activity normal gait, normal posture Zulay Almore " behavior (mental status exam) appropriate, candid, cooperative, good eye contact, polite, responsive Zulay Almore " mental appearance (mental status exam) adequate hygiene, appropriate dress, looks like stated age, jose Pedersen mental status assessment, judgment good Zulay Almore " insight (mental status exam) good Zulay Almore " Mental Status Exam: intelligence adequate fund of information, intact memory processes, oriented to person, oriented to place, oriented to time, oriented to situation, oriented to reality Zulay Almore " hallucinations none Zulay Almore " thought content (mental status exam) (E&M) lucid Zulay Almore " mental status assessment, process able to abstract, goal-directed, logical Zulay Almore " mental status assessment, sensorium alert, attentive, clear Zulay Almore " affect (mental status exam) congruent, euthymic, normal intensity, normal range Zulay Almore " mood (mental status exam) pleasant Zulay Almore " mental status assessment, speech activity normal flow, normal pace, normal pressure, normal rate, normal tone, normal volume, spontaneous Zulay Almore " mental status assessment, motor activity normal gait, normal posture Zulay Almore " behavior (mental status exam) appropriate, candid, cooperative, good eye contact, polite, responsive Zulay Almore " mental appearance (mental status exam) adequate hygiene, appropriate dress, looks like stated age, jose Pedersen mental status assessment, judgment good Zulay Almore " insight (mental status exam) good Zulay Almore " Mental Status Exam: intelligence adequate fund of information, intact memory processes, oriented to person, oriented to place, oriented to time, oriented to situation, oriented to reality Zulay Almore " hallucinations none Zulay Almore " thought content (mental status exam) (E&M) lucid Zulay Almore " mental status assessment, process able to abstract, goal-directed, logical Zulay Almore " mental status assessment, sensorium alert, attentive, clear Zulay Almore " affect (mental status exam) congruent, euthymic, normal intensity, normal range Zulay Almore " mood (mental status exam) happy, pleasant Zulay Almore " mental status assessment, speech activity normal flow, normal pace, normal pressure, normal rate, normal tone, normal volume, spontaneous Zulay Almore " mental status assessment, motor activity normal gait, normal posture Zulay Almore " behavior (mental status exam) appropriate, candid, cooperative, good eye contact, polite, responsive Zulay Almore " mental appearance (mental status exam) adequate hygiene, appropriate dress, looks like stated age, neat Zulay Escamillaore anxiety worry a lot, panic attacks Zulay Almore mental status assessment, judgment good Ignacia Ogunmokun " insight (mental status exam) good Ignacia Ogunmokun " Mental Status Exam: intelligence adequate fund of information, intact memory processes, oriented to person, oriented to place, oriented to time, oriented to situation, oriented to reality Ignacia Ogunmokun " hallucinations none Ignacia Ogunmokun " thought content (mental status exam) (E&M) lucid Ignacia Ogunmokun " mental status assessment, process able to abstract, goal-directed, logical Ignacia Ogunmokun " mental status assessment, sensorium alert, attentive, clear Ignacia Ogunmokun " affect (mental status exam) congruent, euthymic, normal intensity, normal range Ignacia Ogunmokun " mood (mental status exam) happy, pleasant Ignacia Ogunmokun " mental status assessment, speech activity normal flow, normal pace, normal pressure, normal rate, normal tone, normal volume, spontaneous Ignacia Ogunmokun " mental status assessment, motor activity normal gait, normal posture Ignacia Ogunmokun " behavior (mental status exam) appropriate, candid, cooperative, good eye contact, polite, responsive Ignacia Ogunmokun " mental appearance (mental status exam) adequate hygiene, appropriate dress, looks like stated age, neat Ignacia Ogunmokun " anxiety worry a lot, irritability, many physical complaints, phobias, panic attacks Ignacia Ogunmokun assessment of judgment and insight E&M intact Edgardo Marquez " assessment of mood and affect E&M no depression, anxiety, or agitation Edgardo Marquez " Generalized Anxiety Disorder Questionnaire - Question 2 0 Carmela Benjamin " Generalized Anxiety Disorder Questionnaire - Question 1 0 Carmela Benjamin assessment of judgment and insight E&M intact [facility] " assessment of mood and affect E&M no depression, anxiety, or agitation [facility] " Generalized Anxiety Disorder Questionnaire - Question 2 1 Letha Vang " Generalized Anxiety Disorder Questionnaire - Question 1 1 Letha Vang assessment of judgment and insight E&M intact [facility] " assessment of mood and affect E&M no depression, anxiety, or agitation [facility] " Generalized Anxiety Disorder Questionnaire - Question 2 0 Rhea Gray " Generalized Anxiety Disorder Questionnaire - Question 1 0 Rhea Gray assessment of judgment and insight E&M intact [facility] " mental status examination: orientation E&M oriented to time, place, and person [facility] " assessment of mood and affect E&M no depression, anxiety, or agitation [facility] " Generalized Anxiety Disorder Questionnaire - Question 2 0 Reha Gray " Generalized Anxiety Disorder Questionnaire - Question 1 0 Rhea Gray MEDICAL EQUIPMENT No Information Available FAMILY HISTORY No Information Available INSURANCE PROVIDERS No Information Available ADVANCE DIRECTIVES No Information Available TREATMENT PLAN Date Name TSH Lipid Panel Comp. Metabolic Panel (14) CBC With Differential/Platelet Lipid Panel TSH+T4+T3H Glucose, Serum Comp. Metabolic Panel (14) CBC With Differential/Platelet - - - - Est Patient Detailed - 02966 Est Patient Exp Problem - 64232 Health Education/Supportive Counseling Est Patient Exp Problem - 24265 Uniform Attendant Est Patient Exp Problem - 44375 Est Patient Exp Problem - 04626 Psychotherapy 45 (38-52*) min - 41371 (with patient and/or family member) Psychotherapy 30 (16-37*) min - 03225 (with patient and/or family member) Est Patient Exp Problem - 70502 Psychotherapy 45 (38-52*) min - 23450 (with patient and/or family member) Behavioral Health - Psychological Testing Est Patient Exp Problem - 70238 Est Patient Exp Problem - 06507 Behavioral Health - Psychological Testing Diagnostic evaluation (no medical) - 54948 Est Patient Exp Problem - 43096 Diagnostic evaluation with medical - 23993 Est Patient Exp Problem - 50138 Behavioral Health - Psychological Testing New Patient Detailed - 81258 Psychotherapy 45 (38-52*) min - 95990 (with patient and/or family member) Psychotherapy 45 (38-52*) min - 06892 (with patient and/or family member) Psychotherapy 45 (38-52*) min - 73377 (with patient and/or family member) Psychotherapy 45 (38-52*) min - 40095 (with patient and/or family member) Psychotherapy 45 (38-52*) min - 49335 (with patient and/or family member) Diagnostic evaluation (no medical) - 96792 Diagnostic evaluation with medical - 57749 Urinalysis - - In House Est Patient Exp Problem - 76999 Depo-Provera 150mg Est Patient Exp Problem - 54540 Est Patient Exp Problem - 97123 Depo-Provera 150mg Depo-Provera 150mg Est Patient Exp Problem - 62355 HISTORY OF PROCEDURES Procedure Date Procedure Name Provider Procedure Notes Status Health Education/Supportive Counseling [facility] Provider completed Psychotherapy 45 (38-52*) min - 33195 (with patient and/or family member) Breanna Mann completed Psychotherapy 30 (16-37*) min - 64571 (with patient and/or family member) Breanna Mann completed Psychotherapy 45 (38-52*) min - 82140 (with patient and/or family member) Breanna Mann completed Diagnostic evaluation (no medical) - 02234 Breanna Hammer Arnoldkrzysztof completed Diagnostic evaluation with medical - 13387 Jessica Jacques completed Psychotherapy 45 (38-52*) min - 99823 (with patient and/or family member) Zulay Pedersen completed Psychotherapy 45 (38-52*) min - 70389 (with patient and/or family member) Zulay Pedersen completed Psychotherapy 45 (38-52*) min - 35368 (with patient and/or family member) Zulay Pedersen completed Psychotherapy 45 (38-52*) min - 66821 (with patient and/or family member) Zulay Pedersen completed Psychotherapy 45 (38-52*) min - 12583 (with patient and/or family member) Zulay Pedersen completed Diagnostic evaluation (no medical) - 45550 Zulay Pedersen completed Diagnostic evaluation with medical - 44283 Ignacia Cross completed Urinalysis - - In House Edgardo Marquez completed GOALS No Information Available HEALTH CONCERNS No Information Available
[2019-03-02 13:00] VITALS: BP 125/82
--- NOTE | 2019-03-02 20:44 | Operative Report ---
DATE OF PROCEDURE: 03/02/2019 SURGEON: Olegario Kimbrough MD PREOPERATIVE DIAGNOSIS: Lytes right thyroid isthmus nodule. POSTOPERATIVE DIAGNOSIS: Lytes right thyroid isthmus nodule. OPERATIVE PROCEDURE: Right thyroidectomy. ANESTHESIOLOGIST: Dr. Marquez. INDICATIONS: This 28-year-old female, on a CT scan of the neck was noted to have a lesion in the thyroid on the right side. Ultrasound of the thyroid showed the patient has a 1.9 cm nodule in the isthmus paramedian on the right thyroid. Right thyroid gland was slightly enlarged. The patient has no history of thyroid problem. She has no family history of thyroid condition. The patient has no dysphagia, odynophagia, or shortness of breath. She has no hoarseness. The patient had no radiation to the head and neck area. After discussion of treatment options, the patient declined needle aspiration and wanted excisional biopsy of the lesion. It was decided that right thyroidectomy, possible total thyroidectomy and other necessary procedure will be beneficial for her. DESCRIPTION OF PROCEDURE: The patient was taken to operating room, put under general anesthesia, endotracheally intubated. An incision was marked out about 2 fingerbreadths from the sternal notch. Size of the incision was about 3 cm. The area was injected with 1% Xylocaine with 1:100,000 epinephrine for hemostasis. The area was prepped and draped in a sterile fashion. Dissection was carried down to the subplatysmal plane. The strap muscle was identified and this was . The right thyroid came into view. The nodule came into view. The thyroid isthmus was transected using the Harmonic scalpel. The thyroid gland was rotated laterally. The nodule was able to be dissected off from the surrounding soft tissue and also from the thyroid gland. Care was taken during the dissection to ascertain that the inferior parathyroid gland and also the recurrent laryngeal nerve was not disturbed. The recurrent laryngeal nerve came into view and identified and not disturbed. The frozen section was undertaken. The thyroid nodule with a portion of the thyroid tissue was transected and sent for frozen section. The frozen section returned as adenomatous nodule. No malignancy noted. Closure of the area was undertaken. The edges of the thyroid where the lesion was excised were re-examined and bleeding was controlled using bipolar cautery. The tracheoesophageal groove was irrigated with copious amount of normal saline. Any bleeding area was controlled using the bipolar cautery. The strap muscle was advanced in the midline and closed with one mattress suture of 3-0 Vicryl suture. The platysmal flap that was elevated was advanced in the midline and closed on itself using 3-0 Vicryl suture in interrupted fashion. The skin incision was closed using 4-0 Monocryl suture in interrupted fashion. A pressure dressing was applied. The patient tolerated the above procedure well with minimal blood loss. She was given 20 mg of Decadron intraoperatively. The patient was able to be transferred to recovery room in stable condition. MD SORAIDA Phillips/MODL /[id number]
== END | disposition home or self-care (01) ==
LOC: OR 07:52
PROVIDERS: ATTEND Otolaryngology Otolaryngology/Facial Plastic Surgery
DX: Q89.2 Congenital malformations of other endocrine glands (principal); E78.5 Hyperlipidemia, unspecified; F32.9 Major depressive disorder, single episode, unspecified; F41.9 Anxiety disorder, unspecified
CPT/HCPCS: 60200; 81025; 88305; 88331; J0131; J1100; J2001; J2250; J2405; J2704; J3010; J3490